=== PATIENT | female | born 1970 | race Caucasian/White ===

== ENCOUNTER → 2019-10-01 13:09 | Outpatient (BNVA) | payer OTHER, SELFPAY | PROVIDERS: Referring Provider Nurse Practitioner; Visit Provider Specialist | DX: M25.562 Pain in left knee (principal); M17.12 Unilateral primary osteoarthritis, left knee; Z98.890 Other specified postprocedural states | CPT/HCPCS: 73560; 73565 ==

== ENCOUNTER 2019-10-16 16:02 | Outpatient (CLI) | payer OTHER, SELFPAY ==
--- NOTE | 2019-10-16 16:45 | MR_ITS ---
WS: [id number] MRI LEFT KNEE HISTORY: M25.569 Pain in unspecified knee pain. Prior ACL repair. COMPARISON: 10/01/2019 Anterior cruciate ligament: The ACL graft is not identified as a separate structure. The anchors in t he femur and the tibia appear normal. There is no identifiable ACL graft extending between the anchor s. Posterior cruciate ligament: Intact. Medial collateral ligament: Intact. Posterior lateral corner structures: Intact. Medial menisci: Very small caliber posterior meniscus. Anterior horn is also small caliber. Lateral meniscus: Intact. Normal signal, size and shape. Extensor mechanism: Distal quadriceps tendon and patellar tendons are intact. Fluid and soft tissue: Small suprapatellar joint effusion. There is a small lobulated cystic collecti on posterior to the lateral femoral metaphysis which could be a small ganglion. No Moreno's cyst. Osseous and articular structures: Patellofemoral compartment: Normal. Medial compartment: Moderate narrowing medial compartment with marginal osteophytes abutting the MCL. Significant chondromalacia. Lateral compartment: Mild narrowing of the lateral compartment with large marginal osteophytes. Mild thinning and fissuring of the cartilage. MR/MR knee LT wo con* [id number] IMPRESSION: 1. Prior ACL repair. The ACL graft is not identified as a discrete structure. Suspect re-tear of the ACL repair. 2. Small joint effusion. 3. Abnormal menisci within the medial compartment system with tears. Very smal l caliber meniscal horns. 4. Moderate medial compartment internal derangement with loss of cartilage and osteophytes. 5. Mild osteophyte arthritis in the lateral compartment. 6. Small suprapatellar joint effusion.
== END 2019-10-16 16:03 | disposition home or self-care (01) ==
LOC: RADSHAW 16:06
PROVIDERS: PCP Family Medicine; Visit Provider Specialist
DX: M25.462 Effusion, left knee (principal); M25.762 Osteophyte, left knee; M13.862 Other specified arthritis, left knee
CPT/HCPCS: 73721

== ENCOUNTER 2021-06-15 14:15 | Outpatient (CLI) | payer OTHER, SELFPAY ==
--- NOTE | 2021-06-15 14:22 | MM_ITS ---
WS: [id number] BILATERAL 3D TOMOSYNTHESIS DIGITAL SCREENING MAMMOGRAPHY WITH CAD CLINICAL INFORMATION: SCREENING HISTORY: Screening mammogram. No current complaints. COMPARISON: September 10, 2019 TECHNIQUE: Bilateral CC and MLO views. FINDINGS: Scattered fibroglandular densities bilaterally. No suspicious focal mass, asymmetry, calcifications, or architectural distortion. No evidence of malignancy. MM/[place] [id number] IMPRESSION: BI-RADS: 1-Negative FOLLOW UP: 1 Year Follow-up Recommend return to annual screening mammography.
== END 2021-06-15 14:16 | disposition home or self-care (01) ==
LOC: RADSHAW 14:17
PROVIDERS: PCP Family Medicine; Visit Provider Nurse Practitioner
DX: Z12.31 Encounter for screening mammogram for malignant neoplasm of breast (principal)
CPT/HCPCS: 77063; 77067

== ENCOUNTER 2021-10-31 08:21 | Day surgery (SDC) | payer OTHER, SELFPAY ==
[2021-10-27 13:16] VITALS: BMI 39.6
--- NOTE | 2021-10-31 08:29 | P.HP_ITS ---
Same Day Surgery H&P Indication for Procedure/HPI DATE OF PROCEDURE: October 31, 2021 CHIEF COMPLAINT/INDICATIONFOR SURGICAL PROCEDURE: 6 screening colonoscopy PREOP DIAGNOSIS: Screening colonoscopy PLANNED PROCEDURE: Operation Date: 10/31/21 10:30 Proposed Procedures p Colonoscopy 50205,G0121,Z12.11(Not Applicable) - Bennie Hager MD Medications/Allergies* Home Medications Medication Instructions Recorded Confirmed Type latanoprost 0.005 % eye drops 1 drp ophthalmic (eye) DAILY 09/30/21 10/27/21 History multivitamin 1 tab PO DAILY 09/30/21 10/27/21 History omega 5-der-dmk-fish oil 1,000 mg 1 cap PO BID 09/30/21 10/27/21 History (120 mg-180 mg) capsule (Fish Oil) Allergies/Adverse Reactions Allergy/AdvReac Type Severity Reaction Status Date / Time No Known Allergies Allergy Verified 10/24/21 13:12 Pertinent History/Comorbid Conditions* Medical History (Updated 10/24/21 @ 13:40 by Bennie Hager MD) Back pain Chronic migraine Amitriptyline cause drowsiness in the past HTN (hypertension) with goal to be determined Hypertriglyceridemia Migraine headache Surgical History (Updated 10/03/19 @ 08:52 by Radha Ayers MD) H/O left knee surgery 1999 Social History Smoking and tobacco status: former smoker Alcohol intake: never Pertinent Exam Findings alert, oriented x 3, clear to auscultation bilaterally, regular rate & rhythm, operative site marked and procedure specific exam findings Recommendations Surgery/Procedure today Coding Level of Care Code Acute Automated Process Operator for Jose Martin Heath
[2021-10-31 09:39] VITALS: BP 132/81; PULSE 63; RESP 18; TEMP 36.5; O2SAT 96
[2021-10-31 09:43] LABS: OR HCG Qualitative Urine Negative (Negative)
[2021-10-31] MEDS: sodium chloride 0.9% 1,000 ML 30 ML IV (09:44)
--- NOTE | 2021-10-31 10:39 | ANES.PREANE2 ---
Pre-Anesthetic Assessment Height/Weight: Height 1.68 m Weight 111.584 kg Temp Pulse Resp BP Pulse Ox O2 Del Method 97.7 F 63 18 132/81 96 10/31/21 09:39 10/31/21 09:39 10/31/21 09:39 10/31/21 09:39 10/31/21 09:39 10/31/21 09:39 Preop Diagnosis: Screening Operation Date: 10/31/21 10:30 Proposed Procedures p Colonoscopy 49197,G0121,Z12.11(Not Applicable) - Bennie Hager MD Familial anesthetic complications: None Was Beta Ruth taken within 24 hours: N/A Was Clonidine taken within 24 hours: N/A Last intake: Intake Last Liquid Date 10/30/21 Last Liquid Time 20:00 Last Solid Date 10/29/21 Last Solid Time 20:00 Social No alcohol and No tobacco former smoker Exam alert, oriented x 3, clear to auscultation bilaterally and regular rate & rhythm Airway Mallampati: Class IV Dentition: other (bridge) CV/HEM Hypertension Metabolic Hyperlipidemia and Morbid Obesity Anesthetic Plan ASA status: 2 Anesthesia: MAC Risk of > 500 ml blood loss (7ml/kg in children): No Medications/Allergies Home Medications Medication Instructions Recorded Confirmed Last Taken Type zolmitriptan 5 mg disintegrating 5 mg PO Q2H PRN migraine headache 09/18/19 10/31/21 Unknown Rx tablet #14 tabs latanoprost 0.005 % eye drops 1 drp ophthalmic (eye) DAILY 09/30/21 10/31/21 10/30/21 History multivitamin 1 tab PO DAILY 09/30/21 10/31/21 10/29/21 History omega 9-uqf-izu-fish oil 1,000 mg 1 cap PO BID 09/30/21 10/31/21 10/29/21 History (120 mg-180 mg) capsule (Fish Oil) Allergies Allergy/AdvReac Type Severity Reaction Status Date / Time No Known Allergies Allergy Verified 10/31/21 09:33 Current Medications Generic Name Dose Route Start Last Admin Trade Name Freq PRN Reason Stop Dose Admin Sodium Chloride 1,000 mls @ 30 mls/hr 10/31/21 09:00 10/31/21 09:44 Sodium Chloride 0.9% IV 11/01/21 08:59 30 mls/hr .Q24H SHAMEKA Administration PFSH Anesthesia Medical History (Updated 10/24/21 @ 13:40 by Bennie Hager MD) Back pain Chronic migraine Amitriptyline cause drowsiness in the past HTN (hypertension) with goal to be determined Hypertriglyceridemia Migraine headache Surgical History H/O left knee surgery 1999 Social History Smoking and tobacco status: former smoker Alcohol intake: never Female Reproductive History Date of last menstrual period: 10/21/21 Data Anesthesia Cardiac Studies: No Data to Display
[2021-10-31 12:08] VITALS: BP 147/88; PULSE 66; RESP 16; TEMP 36.1; O2SAT 93
[2021-10-31 12:20] VITALS: BP 121/79; PULSE 66; RESP 18; O2SAT 96
--- NOTE | 2021-10-31 14:09 | ANE.PACU2 ---
Inpatient post-anesthesia follow up: Airway intact: Yes Vital signs: Temperature 97.0 F Pulse Rate 66 Respiratory Rate 18 Blood Pressure 121/79 Pulse Oximetry 96 Oxygen Delivery Me thod Room Air Oxygen Flow Rate Fraction of Inspir ed Oxygen Hydration adequate: Yes Nausea and vomiting: No Pain level: 1 Mental status: Baseline
== END 2021-10-31 12:36 | disposition home or self-care (01) ==
PROVIDERS: PCP Nurse Practitioner; Visit Provider Internal Medicine
PROC: 0DJD8ZZ Inspection of Lower Intestinal Tract, Via Natural or Artificial Opening Endoscopic (ICD-10-PCS; CPT 45378; principal; 2021-10-31 10:30)
DX: Z12.11 Encounter for screening for malignant neoplasm of colon (principal); I10 Essential (primary) hypertension; Z87.891 Personal history of nicotine dependence; E78.5 Hyperlipidemia, unspecified; E66.01 Morbid (severe) obesity due to excess calories; Z68.39 Body mass index [BMI] 39.0-39.9, adult
CPT/HCPCS: 45378; 84703; J2704; J7030

== ENCOUNTER 2022-05-19 07:38 | Outpatient (CLI) | payer OTHER, SELFPAY ==
--- NOTE | 2022-05-19 07:54 | MR_ITS ---
WS: [id number] MRI RIGHT KNEE NONCONTRAST TECHNIQUE: Axial PD, coronal PD fat sat, coronal PD, sagittal PD, and sagittal PD fat-sat images obta ined. CLINICAL INFORMATION: R KNEE PAIN/?MENISCUS TEAR COMPARISON: None. FINDINGS: Distal quadriceps and patella tendons are intact. Hypertrophic patella. Advanced degenerative narrowi ng patellofemoral articulation. Grade 4 chondromalacia patella with a small amount of subchondral yoanna ma. Chondromalacia worse involving the lateral patella facet. Medial and lateral patellar retinacula appear intact. Hypertrophic changes along the joint line. Normal ACL and PCL. Chronic thinning of the medial and lateral meniscus. Moderate joint space narrowi ng. Chronic thinning of the lateral meniscus appears intact. Blunting of the anterior horn medial men iscus extending to the meniscal root with meniscal root tear. Medial and lateral collateral ligaments appear intact. Normal popliteus. MR/MR knee RT wo con* [id number] IMPRESSION: 1. Normal ACL and PCL. 2. Moderate degenerative narrowing medial and lateral joint compartments grade II to III chondromalacia. 3. Blunting of the anterior horn medial meniscus with tear at the meniscal osiris t. 4. Hypertrophic patella. 5. Advanced chondromalacia patella with a small amount of subchondral edema. C hondromalacia worse involving the lateral patella facet. Outbridge grading: grade IV: full-thickness cartilage loss with underlying bone reactive changes
== END 2022-05-19 07:39 | disposition home or self-care (01) ==
LOC: RAD 07:40
PROVIDERS: PCP Nurse Practitioner; Visit Provider Nurse Practitioner
DX: M25.561 Pain in right knee (principal); M94.261 Chondromalacia, right knee
CPT/HCPCS: 73721

== ENCOUNTER 2022-07-20 13:42 | Emergency (ER) | payer OTHER, SELFPAY ==
[2022-07-20 13:48] VITALS: BP 161/81; PULSE 76; RESP 16; TEMP 36.8; O2SAT 96; BMI 35.5
--- NOTE | 2022-07-20 14:06 | W.ED.ANIMALB ---
HPI - Animal Bite General: Chief Complaint: Animal Bite Stated Complaint: Dog bite to right hand Time Seen by Provider: 07/20/22 13:55 History of Present Illness: Patient is a 51-year-old female who comes to the ED with dog bite to right hand. Patient was bit by her own Turkish Payne while she was trying to break up a fight between her dog and another dog. Dog has been fully vaccinated including rabies vaccination. Patient has multiple bite wounds to patient's hand in particular thumb and index finger. Associated symptoms: Deny chills, fever(s) or headache(s) Review of Systems Const: Denies: fever(s), chills or fatigue Eyes: Denies: change in vision or eye discomfort ENMT: Denies: throat pain, odynophagia, nasal discharge or nasal congestion Card: Denies: chest pain, palpitations, edema, swelling of feet/ankles, dyspnea on exertion or orthopnea Resp: Denies: dyspnea, productive cough or non-productive cough GI: Denies: abdominal pain, nausea, vomiting, diarrhea, constipation or hematochezia : Denies: flank pain, dysuria or hematuria Musc: Denies: neck pain, back pain or extremity swelling Skin/Breast: Reports: new lesions (Dog bite wound to right hand); Denies: rash Neuro: Denies: headache(s), numbness in extremities or weakness in extremities [facility] ED PFSH: Medical History (Updated 07/20/22 @ 14:53 by PHOENIX Pink) Back pain Chronic migraine Amitriptyline cause drowsiness in the past HTN (hypertension) with goal to be determined Hypertriglyceridemia Migraine headache Surgical History H/O left knee surgery 1999 Social History Smoking and tobacco status: former smoker Alcohol intake: never Substance/Drug Use: never Physical Exam Const: COMMON NORMALS: patient oriented x3 HENMT: COMMON NORMALS: normocephalic HEAD & SCALP: normocephalic MOUTH: Normal oral and palatal mucosa present THROAT: posterior oropharynx normal and uvula midline Neck/C-Spine: COMMON NORMALS: supple GENERAL: Yes normal visual inspection Resp: COMMON NORMALS: normal respiratory effort, No retractions, No use of accessory muscles and clear to auscultation bilaterally AUSCULTATION: clear to auscultation bilaterally Cardio: COMMON NORMALS: regular rate, regular rhythm, S1 normal heart sound present, S2 normal heart sound present, No gallops present (Cardio), No clicks present (Cardio), No murmurs present (Cardio) and Peripheral pulses 2+ throughout RATE: regular rate RHYTHM: regular rhythm HEART SOUNDS: S1 normal heart sound present and S2 normal heart sound present PERIPHERAL PULSES: Peripheral pulses 2+ throughout GI: COMMON NORMALS: Normal to inspection, nondistended, normoactive bowel sounds present, Soft to palpation, non-tender and no masses PALPATION: Yes Soft to palpation : COMMON NORMALS: Yes no CVA tenderness BLADDER/KIDNEY EXAM: Yes no CVA tenderness Back/Pelvis: COMMON NORMALS: no CVA tenderness Extremity: NARRATIVE EXTREMITY EXAM: Right hand?multiple small bite wounds and puncture wounds to thumb and index finger. All bite wounds are less than a half a centimeter in size. No damage to nail and nailbed. Neuro: COMMON NORMALS: patient oriented x3 GAIT: Yes Normal gait present Skin: GENERAL SKIN EXAM: dry skin Course Vital Signs: Vital signs: Vital Signs Temperature 98.3 F 07/20/22 13:48 Pulse Rate 76 07/20/22 13:48 Respiratory Rate 16 07/20/22 13:48 Blood Pressure 161/81 07/20/22 13:48 Pulse Oximetry 96 07/20/22 13:48 Oxygen Delivery Me thod Room Air 07/20/22 13:48 MDM - Animal Bite Medical Decision Making Patient is a 51-year-old female who comes to the ED with dog bite to right hand. Patient was bit by her own [place] Payne while she was trying to break up a fight between her dog and another dog. Dog has been fully vaccinated including rabies vaccination. Patient has multiple bite wounds to patient's hand in particular thumb and index finger.Right hand?multiple small bite wounds and puncture wounds to thumb and index finger. All bite wounds are less than a half a centimeter in size. No damage to nail and nailbed. All of patient's dog bite wounds are small and will heal by secondary intention. Nurse irrigated dog bite wounds extensor with normal saline and Betadine. Triple antibiotic ointment was applied over wounds along with a bandage. X-ray of right hand showed no bony injury or any acute fractures or findings. Patient was stable for discharge home and sent home with a prescription for Augmentin and instructed on how to care for dog bite wounds. Return ED precautions given. Follow-up with PCP within the next week for reevaluation. Patient understood agree with plan. Lab Data Radiology Impressions Hand X-Ray 07/20/22 14:15 Impression: Negative right hand. Discharge Plan Discharge Patient Disposition: Home Clinical Impression: Dog bite of right hand Condition: Stable Prescriptions: New Augmentin 500-125 mg tablet 1 tab PO BID 7 Days Qty: 14 0RF No Action zolmitriptan 5 mg tablet,disintegrating 5 mg PO Q2H PRN (Reason: migraine headache) Qty: 14 1RF Rx Instructions: do not exceed 2 doses per 24 hrs omega 1-vwm-owh-fish oil [Fish Oil] 1,000 mg (120 mg-180 mg) capsule 1 cap PO BID latanoprost 0.005 % drops 1 drp ophthalmic (eye) DAILY multivitamin Tablet 1 tab PO DAILY Discharge Orders: Discharge ED (Routine); Ordered 07/20/22 Ordered By: Alfredo Granados Referrals: Shanell Hinds FNP [Primary Care Provider] - Discharge Diet: Regular Discharge Activity: Increase activity as tolerated Patient Instructions: Animal Bite (ED) Activity Restrictions/Additional Instructions: Follow-up with medical provider as directed in the next 3 to 5 days to recheck dog bite wounds. Take medications as prescribed. Clean dog bite wound daily with soap and water and then apply thin layer of triple antibiotic ointment and wrapped with bandage. Return to the ER or your medical provider if condition worsens. Please read and understand discharge instructions. Thank you for choosing [facility] for your healthcare needs today. Please realize this is an emergency room and that we are providing you with a medical screening exam and this may not be complete and all inclusive of all the testing and or work up that you may need to determine your ailment or severity of your illness. It is very important that you follow up as instructed or that you return to the Emergency Department should you have concerns or if your condition changes or worsens in any way. Coding Level of Care Code ED Superintendent Custodian Janitor for Jose Martin Heath
--- NOTE | 2022-07-20 14:15 | XR_ITS ---
WS: [id number] Right hand, 3 views, 07/20/2022 Clinical Data: dog Bite injury to right hand Comparison: None. Findings: No new fractures or dislocations are seen. The soft tissues are unremarkable. The joint s paces are normal There is an old fracture of the right fifth metacarpal. There is internal fixation of an old distal r ight radial fracture. XR/XR hand RT min 3V* [id number] Impression: Negative right hand.
[2022-07-20] MEDS: tetanus-dipt-pertussis 0.5 mL SDV IM (14:25)
[2022-07-20] MEDS: HYDROcodone-acetaminophen 7.5-325 mg Tablet 1 TAB PO (15:13)
[2022-07-20] MEDS: neomycin-poly-bacitracin oint 28 gm 1 APPLIC TOPICAL (15:14)
== END 2022-07-20 15:19 | disposition home or self-care (01) ==
PROVIDERS: Emergency Provider Physician Assistant; PCP Nurse Practitioner
DX: S61.451A Open bite of right hand, initial encounter (principal); W54.0XXA Bitten by dog, initial encounter; I10 Essential (primary) hypertension; Z87.891 Personal history of nicotine dependence; Z23 Encounter for immunization
CPT/HCPCS: 73130; 90471; 90715; 99283

== ENCOUNTER 2023-06-06 10:13 | Outpatient (CLI) | payer OTHER, SELFPAY ==
--- NOTE | 2023-06-06 10:19 | MM_ITS ---
WS: [id number] BILATERAL SCREENING DIGITAL TOMOSYNTHESIS MAMMOGRAM WITH CAD HISTORY: SCREENING COMPARISON: 06/15/2021, 09/10/2019 Bilateral CC and MLO views with tomosynthesis and synthetic mammography submitted. Computer aided det ection analyzed. Breast composition: There are scattered areas of fibroglandular density. No suspicious masses, microc alcifications or architectural distortion. IMPRESSION: MM/[place] [id number] BI-RADS: 1-Negative FOLLOW UP: 1 Year Follow-up
== END 2023-06-06 10:14 | disposition home or self-care (01) ==
LOC: RAD 10:13
PROVIDERS: PCP Nurse Practitioner; Visit Provider Nurse Practitioner
DX: Z12.31 Encounter for screening mammogram for malignant neoplasm of breast (principal)
CPT/HCPCS: 77063; 77067

== ENCOUNTER 2024-07-27 08:14 | Emergency (ER) | payer OTHER, SELFPAY ==
[2024-07-27 08:18] VITALS: BP 145/101; PULSE 74; RESP 16; TEMP 36.6; O2SAT 95; BMI 37.1
--- NOTE | 2024-07-27 08:26 | XRR_ITS ---
PROCEDURE INFORMATION: Exam: XR Chest Exam date and time: 07/27/2024 8:41 AM Age: 54 years old Clinical indication: Screening exam; Other screening; Fb in throat; Mouthguard broke and plastic piece in throat TECHNIQUE: Imaging protocol: Radiologic exam of the chest. Views: 1 view. Total images: 2 COMPARISON: No relevant prior studies available. FINDINGS: Lungs: Unremarkable. No consolidation. Pleural spaces: Unremarkable. No pleural effusion. No pneumothorax. Heart/Mediastinum: Unremarkable. No cardiomegaly. Bones/joints: Unremarkable. Soft tissues: No radio-dense foreign body. XR/XR chest 1V portable [id number] IMPRESSION: 1. No acute cardiopulmonary process. 2. No radio-dense foreign body.
--- NOTE | 2024-07-27 08:28 | W.ED.GENADLT ---
HPI - General Adult General: Chief complaint: Airway/Esophagus Foreign Body Stated complaint: onject lodged throat Time Seen by Provider: 07/27/24 08:19 Source: patient Mode of arrival: ambulatory Limitations: no limitations History of Present Illness: 54-year-old female who states she is wearing a mouthguard overnight and felt like a piece of plastic and fell off of it she had swallowed it. States she feeling she has some pain in her esophagus for that the piece of plastic is stuck. She is able to swallow without difficulty denies any breathing issues denies any shortness of breath. Associated symptoms: Deny chest pain, dyspnea, headache(s), nausea, rash or vomiting Related Data Home Medications ?Medication ?Instructions ?Recorded ?Confirmed latanoprost 0.005 % eye drops 1 drp ophthalmic (eye) DAILY 09/30/21 07/27/24 (Xalatan) omega 9-vug-ahu-fish oil 1,000 mg 1 cap PO BID 09/30/21 07/27/24 (120 mg-180 mg) capsule (Fish Oil) propranolol 10 mg tablet 10 mg PO BID 07/27/24 07/27/24 rizatriptan 10 mg tablet 0 mg PO .COMPLEX 07/27/24 07/27/24 Allergies Allergy/AdvReac Type Severity Reaction Status Date / Time No Known Allergies Allergy Verified 07/27/24 08:18 Review of Systems Const: Denies: fever(s), chills, body aches or change in appetite ENMT: Denies: throat pain or dental pain Card: Denies: chest pain Resp: Denies: dyspnea GI: Denies: abdominal pain, nausea, vomiting or diarrhea Musc: Denies: neck pain or back pain Skin/Breast: Denies: rash Neuro: Denies: headache(s) PFS ED PFSH: Medical History HTN (hypertension) with goal to be determined Back pain Chronic migraine Amitriptyline cause drowsiness in the past Hypertriglyceridemia Migraine headache Surgical History H/O left knee surgery 1999 Social History Smoking and tobacco/nicotine status: former use of tobacco/nicotine Alcohol intake: never Substance/Drug Use: never Physical Exam Const: COMMON NORMALS: no acute distress, patient oriented x3 and healthy appearing HENMT: COMMON NORMALS: normocephalic and atraumatic HEAD & SCALP: normocephalic and atraumatic Eye: COMMON NORMALS: conjunctivae normal CONJUNCTIVA: Yes conjunctivae normal Neck/C-Spine: COMMON NORMALS: full ROM and supple Chest: COMMONS NORMALS: normal inspection of the chest Resp: COMMON NORMALS: normal respiratory effort, No retractions, No use of accessory muscles and clear to auscultation bilaterally AUSCULTATION: clear to auscultation bilaterally Cardio: COMMON NORMALS: regular rate, regular rhythm and No murmurs present (Cardio) RATE: regular rate RHYTHM: regular rhythm Extremity: COMMON NORMALS: normal to inspection and full ROM Neuro: COMMON NORMALS: patient oriented x3, moves all extremities and no focal motor deficits Psych: COMMON NORMALS: mental status grossly normal, Normal thought process present and cooperative THOUGHT PROCESS: Normal thought process present Skin: COMMON NORMALS: no rashes or lesions noted and no wounds GENERAL SKIN EXAM: no rashes or lesions noted Course Vital Signs: Vital signs: Vital Signs Temperature 97.9 F 07/27/24 08:18 Pulse Rate 74 07/27/24 08:18 Respiratory Rate 16 07/27/24 08:18 Blood Pressure 145/101 07/27/24 08:18 Pulse Oximetry 95 07/27/24 08:18 [facility] - General Adult Medical Decision Making Patient presents here with foreign body sensation in esophagus. Patient's x-ray is normal she has had no stridor she is handling secretions and is able to tolerate liquids and solids. She stable for discharge follow-up PCP return if worsening. Medical Records I reviewed the patient's medical records. All radiology interpretation(s) finalized by discharge Discharge Plan Discharge Patient Disposition: Home Clinical Impression: Sensation of foreign body in esophagus Condition: Stable Prescriptions: No Action omega 6-oof-dii-fish oil [Fish Oil] 1,000 mg (120 mg-180 mg) capsule 1 cap PO BID latanoprost [Xalatan] 0.005 % drops 1 drp ophthalmic (eye) DAILY rizatriptan 10 mg Tablet 0 mg PO .COMPLEX Rx Instructions: take 1 tab at onset of headache; if no relief may repeat 1 tab after at least 2 hrs; max = 3 tabs/24 hr propranolol 10 mg Tablet 10 mg PO BID Discharge Orders: Discharge ED (Routine); Ordered 07/27/24 Ordered By: Mariama Laboy Referrals: Shanell Hinds FNP [Primary Care Provider, Nurse Practitioner] - 4-7 days Discharge Diet: Advance as tolerated Discharge Activity: Resume usual activity Patient Instructions: Foreign Body - Swallowed Print Language: Yi Coding Level of Care Code ED Delivery Driver/Customer Service for Jose Martin Heath
[2024-07-27] MEDS: lidocaine 2% viscous 15 ML, aluminum-mag hydrox-simethicon 30 ML, sucralfate oral liq 1 GM PO (08:39)
[2024-07-27] MEDS: glucagon 1 mg/mL KIT 1 mL IM (08:41)
[2024-07-27 09:10] VITALS: BP 131/87; PULSE 69; O2SAT 95
== END 2024-07-27 09:10 | disposition home or self-care (01) ==
PROVIDERS: Emergency Provider Emergency Medicine; PCP Nurse Practitioner
DX: R09.A2 Foreign body sensation, throat (principal); Z87.891 Personal history of nicotine dependence; I10 Essential (primary) hypertension
CPT/HCPCS: 71045; 96372; 99284; J1610; J9999

== ENCOUNTER → 2024-10-29 13:00 | Outpatient (BNVA) | payer OTHER, SELFPAY | PROVIDERS: PCP Nurse Practitioner; Visit Provider Surgery | DX: K21.9 Gastro-esophageal reflux disease without esophagitis (principal) | CPT/HCPCS: 99203 ==

== ENCOUNTER 2024-11-06 08:20 | Day surgery (SDC) | payer OTHER, SELFPAY ==
[2024-11-06 08:36] VITALS: BP 141/85; PULSE 73; RESP 18; TEMP 36.5; O2SAT 98; BMI 38.7
--- NOTE | 2024-11-06 09:03 | ANES.PREANE2 ---
Pre-Anesthetic Assessment Height/Weight: Height 1.68 m Weight 108.862 kg Temp Pulse Resp BP Pulse Ox O2 Del Method 97.7 F 73 18 141/85 98 Room Air 11/06/24 08:36 11/06/24 08:36 11/06/24 08:36 11/06/24 08:36 11/06/24 08:36 11/06/24 08:36 Preop Diagnosis: GERD Operation Date: 11/06/24 10:10 Proposed Procedures p EGD EGD with Biopsy [id number] K21.9(Not Applicable) - Osmin Rivera MD Familial anesthetic complications: none Was Beta Ruth taken within 24 hours: Yes (for migraines) Was Clonidine taken within 24 hours: N/A Last intake: Intake Last Liquid Date 11/05/24 Last Liquid Time 21:00 Last Solid Date 11/05/24 Last Solid Time 17:00 Social No alcohol and No tobacco Exam alert, oriented x 3, clear to auscultation bilaterally and regular rate & rhythm Airway Submandibular: within normal limits Cervical ROM: within normal limits Mallampati: Class I Pulmonary None reported CV/HEM None reported None reported Hepatic None reported GI Gastroesophageal Reflux Disease Metabolic Morbid Ob[place] [facility] [place] None reported Neuropsych Headache (chronic migraines) Anesthetic Plan ASA status: 3 Anesthesia: MAC Risk of > 500 ml blood loss (7ml/kg in children): No Medications/Allergies Home Medications ?Medication ?Instructions ?Recorded ?Confirmed ?Last Taken ?Type latanoprost 0.005 % eye drops 1 drp ophthalmic (eye) DAILY 09/30/21 11/03/24 11/03/24 History (Xalatan) omega 1-eyh-gyx-fish oil 1,000 mg 1 cap PO BID 09/30/21 11/03/24 11/03/24 History (120 mg-180 mg) capsule (Fish Oil) propranolol 10 mg tablet 10 mg PO BID 07/27/24 11/03/24 11/06/24 History rizatriptan 10 mg tablet 0 mg PO .COMPLEX 07/27/24 11/03/24 Unknown History pantoprazole 40 mg tablet,delayed 40 mg PO DAILY 10/29/24 11/03/24 11/06/24 History release Allergies Allergy/AdvReac Type Severity Reaction Status Date / Time No Known Allergies Allergy Verified 11/03/24 09:29 Current Medications Generic Name Dose Route Start Last Admin Trade Name Freq PRN Reason Stop Dose Admin Sodium Chloride 1,000 mls @ 15 mls/hr 11/06/24 08:27 11/06/24 08:51 Sodium Chloride 0.9% IV 11/07/24 08:26 15 mls/hr .Q24H PRN Administration COLONOSCOPY FLUIDS PFSH Anesthesia Medical History HTN (hypertension) with goal to be determined Back pain Chronic migraine Amitriptyline cause drowsiness in the past Hypertriglyceridemia Migraine headache Surgical History H/O left knee surgery 1999 Social History Smoking and tobacco/nicotine status: never used tobacco/nicotine Alcohol intake: never Substance/Drug Use: never
--- NOTE | 2024-11-06 09:06 | P.HPUD_ITS ---
Surgery/Procedure H&P Update DATE OF PROCEDURE: November 06, 2024 DATE H&P PERFORMED: 10/29/24 H&P UPDATE INFORMATION: I have reviewed H&P completed within last 30 days, I have examined patient prior to procedure, No changes to prior documentation, H&P is in [facility] EMR on date indicated and Risks and benefits of the procedure reviewed PREOP DIAGNOSIS: GERD PLANNED PROCEDURE: Operation Date: 11/06/24 10:10 Proposed Procedures p EGD EGD with Biopsy 44886 K21.9(Not Applicable) - Osmin Rivera MD
[2024-11-06 09:33] VITALS: BP 125/71; PULSE 75; RESP 16; TEMP 36.3; O2SAT 93
[2024-11-06 09:42] VITALS: BP 149/92; PULSE 78; RESP 16; O2SAT 94
--- NOTE | 2024-11-06 10:20 | ANE.PACU2 ---
Inpatient post-anesthesia follow up: Airway intact: Yes Vital signs: Temperature 97.3 F Pulse Rate 78 Respiratory Rate 16 Blood Pressure 149/92 Pulse Oximetry 94 Oxygen Delivery Me thod Room Air Oxygen Flow Rate Fraction of Inspir ed Oxygen Hydration adequate: Yes Nausea and vomiting: No Pain level: 1 Mental status: Baseline
== END 2024-11-06 10:21 | disposition home or self-care (01) ==
PROVIDERS: PCP Nurse Practitioner; Visit Provider Surgery
PROC: 0DJ08ZZ Inspection of Upper Intestinal Tract, Via Natural or Artificial Opening Endoscopic (ICD-10-PCS; principal; 2024-11-06 10:10)
DX: R13.10 Dysphagia, unspecified (principal); K21.9 Gastro-esophageal reflux disease without esophagitis; I10 Essential (primary) hypertension; E66.01 Morbid (severe) obesity due to excess calories; Z68.38 Body mass index [BMI] 38.0-38.9, adult
CPT/HCPCS: 43235; 88305; J2704; J7030

== ENCOUNTER → 2024-12-02 13:30 | Outpatient (BNVA) | payer OTHER, SELFPAY | PROVIDERS: PCP Nurse Practitioner; Visit Provider Surgery | DX: Z09 Encounter for follow-up examination after completed treatment for conditions other than malignant neoplasm (principal) | CPT/HCPCS: 99213 ==